=== PATIENT | female | born 1945 | race Caucasian/White ===

== ENCOUNTER 2020-05-28 13:45 | Emergency (ER) | payer MEDICARE ==
[~2020-05-28 13:45] MED LIST: GABAPENTIN300 MG PO; TRAMADOL HCL50 MG PO; VOLTAREN100 GM TOP
[2020-05-29] MEDS ORDERED: TRAMADOL HCL50 MG PO (11:51)
[2020-05-29] MEDS ORDERED: GABAPENTIN300 MG PO (11:51)
[2020-08-19] MEDS ORDERED: TRAMADOL HCL50 MG PO (15:24)
== END 2020-05-28 16:46 | disposition home or self-care (01) ==
LOC: FER 13:45
DX: S46.011A Strain of muscle(s) and tendon(s) of the rotator cuff of right shoulder, initial encounter (principal); M19.031 Primary osteoarthritis, right wrist; E11.9 Type 2 diabetes mellitus without complications; W01.0XXA Fall on same level from slipping, tripping and stumbling without subsequent striking against object, initial encounter; Y92.009 Unspecified place in unspecified non-institutional (private) residence as the place of occurrence of the external cause
CPT/HCPCS: 73030; 73110

== ENCOUNTER 2020-08-28 13:47 | Emergency (ER) | payer MEDICARE ==
[2020-08-28 15:18] LABS: BASOPHIL 0.3 % (0-2); EOSINOPHIL 1.1 % (0-7); HCT 36.3 % (37.0-47.0); HGB 12.2 g/dl (12.5-16.0); LYMPHOCYTE 20.3 % (15-48); MCH 30.1 pg (25.0-31.0); MCHC 33.6 g/dL (32.0-36.0); MCV 89.6 fL (78.0-100.0); MONOCYTE 5.6 % (0-12); MPV 11.6 fL (6.0-9.5); NEUTROPHIL 72.4 % (41-80); NRBC 0; PLT 226 K/uL (150-400); RBC 4.05 M/uL (4.20-5.40); RDW 12.6 % (11.5-14.0); WBC 12.7 K/uL (4.0-10.5)
[2020-08-28 15:29] LABS: ALBUMIN 3.5 g/dL (3.4-5.0); BILIRUBIN - TOTAL 0.8 mg/dL (0.2-1.0); BUN/CREAT RATIO (CALC) 41.1 RATIO; CREATININE 0.73 mg/dL (0.51-0.95); GLOBULIN (CALCULATION) 4.1 g/dL; POTASSIUM 3.6 mmol/L (3.5-5.1); TOTAL PROTEIN 7.6 g/dL (6.4-8.2)
[2020-12-16] MEDS ORDERED: ULTRAM50 MG PO (14:06)
== END 2020-08-28 17:01 | disposition other institution (70) ==
LOC: FER 13:47
PROVIDERS: Nurse Practitioner Family
DX: S52.601A Unspecified fracture of lower end of right ulna, initial encounter for closed fracture (principal); S62.630A Displaced fracture of distal phalanx of right index finger, initial encounter for closed fracture; S51.851A Open bite of right forearm, initial encounter; Z23 Encounter for immunization; W54.0XXA Bitten by dog, initial encounter; Y92.009 Unspecified place in unspecified non-institutional (private) residence as the place of occurrence of the external cause
CPT/HCPCS: 36415; 73090; 73140; 80053; 85025; 87040; 87070; 87077; 87186; 87205; 90471; 90715; 96365; J0295

== ENCOUNTER 2022-01-27 14:18 | Emergency (ER) | payer MEDICARE ==
[~2022-01-27 14:18] MED LIST changes: +NEURONTIN300 MG PO; +ULTRAM50 MG PO
[2022-01-27 15:40] LABS: BASOPHIL 0.3 % (0-2); EOSINOPHIL 0.4 % (0-7); HCT 38.5 % (37.0-47.0); HGB 13.3 g/dl (12.5-16.0); LYMPHOCYTE 18.6 % (15-48); MCH 30.7 pg (25.0-31.0); MCHC 34.5 g/dL (32.0-36.0); MCV 88.9 fL (78.0-100.0); MONOCYTE 8.7 % (0-12); MPV 11.8 fL (6.0-9.5); NEUTROPHIL 71.7 % (41-80); NRBC 0; PLT 230 K/uL (150-400); RBC 4.33 M/uL (4.20-5.40); RDW 11.9 % (11.5-14.0)
[2022-01-27 15:45] LABS: INR 0.98 (0.9-1.2); PROTHROMBIN TIME 12.7 SECONDS (11.9-13.9); PTT 24.9 SECONDS (24.9-34.6)
[2022-01-27 16:08] LABS: ALBUMIN 3.4 g/dL (3.4-5.0); BILIRUBIN - TOTAL 0.9 mg/dL (0.2-1.0); BUN/CREAT RATIO (CALC) 28.8 RATIO; CREATININE 0.59 mg/dL (0.51-0.95); POTASSIUM 4.6 mmol/L (3.5-5.1); TOTAL PROTEIN 7.4 g/dL (6.4-8.2)
[2022-01-27 16:11] LABS: BILIRUBIN NEGATIVE (NEGATIVE); BLOOD NEGATIVE Ery/uL (NEGATIVE); CLARITY CLEAR (CLEAR); COLOR YELLOW (YELLOW); GLUCOSE (U) 3+ mg/dL (NORMAL); LEUKOCYTES NEGATIVE Leu/uL (NEGATIVE); NITRITE NEGATIVE (NEGATIVE); PROTEIN NEGATIVE (NEGATIVE); SPECIFIC GRAVITY 1.015 (1.001-1.030); UROBILINOGEN 0.2 mg/dL (0.2-1.0)
[2022-01-27 17:04] LABS: CORONAVIRUS 2019 SARS-COV-2 NEGATIVE (NEGATIVE); INFLUENZA A NAA NEGATIVE (NEGATIVE)
[2022-01-27 18:20] LABS: ACETAMINOPHEN (TYLENOL) < 2.0 ug/mL (10.0-30.0)
[2022-01-27 19:37] LABS: ECSTASY (MDMA) NEGATIVE (NEGATIVE); MARIJUANA (THC) NEGATIVE (NEGATIVE); METHADONE NEGATIVE (NEGATIVE)
[2022-01-27 19:38] LABS: AMPHETAMINES NEGATIVE (NEGATIVE); BARBITURATES NEGATIVE (NEGATIVE); OPIATES NEGATIVE (NEGATIVE); OXYCODONE NEGATIVE (NEGATIVE)
== END 2022-01-28 04:30 | disposition other institution (70) ==
LOC: FER 14:18
PROVIDERS: Internal Medicine
DX: I63.512 Cerebral infarction due to unspecified occlusion or stenosis of left middle cerebral artery (principal); G93.40 Encephalopathy, unspecified; F03.90 Unspecified dementia, unspecified severity, without behavioral disturbance, psychotic disturbance, mood disturbance, and anxiety; I10 Essential (primary) hypertension; E11.9 Type 2 diabetes mellitus without complications; Z20.822 Contact with and (suspected) exposure to COVID-19
CPT/HCPCS: 36415; 70450; 71250; 72125; 72128; 72131; 73080; 80053; 80305; 81003; 82009; 82140; 82550; 83605; 84145; 85025; 85610; 85730; 93005; 96374; 96375; 96376; G0480; J1630; J2060; J7030; U0002